=== PATIENT | female | born 1965 | race Caucasian/White ===

== ENCOUNTER 2018-02-25 02:48 | Emergency (ER) | payer BC, SELFPAY ==
[2018-02-25] MEDS ORDERED: FAMOTIDINE 20 MG/2 ML VIAL IV ONE (03:05)
[2018-02-25] MEDS ORDERED: NA CHLORIDE 0.9% 1,000 ML ONE (03:05)
[2018-02-25] MEDS ORDERED: DIPHENOX/ATROP SULF 1 TAB PO ONE (03:08)
[2018-02-25 03:27] LABS: Absolute Monocytes 0.5 K/uL (0.1-1.3); Absolute Neutrophil 8.4 K/uL (1.8-8.0); Basophils % 0.1 % (0-1.3); Eosinophils % 0.1 % (0-4.4); Hematocrit 46.6 % (36.0-45.0); Lymphocytes % 10.3 % (15.3-44.8); MCH 30.3 pg (27.0-35.0); MCV 90.3 fL (80-100); MPV 8.2 fL (7.6-11.3); Monocytes % 5.4 % (3.3-12.3); RBC Red Blood Cell Count 5.16 M/uL (3.86-4.86)
[2018-02-25] MEDS ORDERED: CIPROFLOXACIN HCL 500 MG TAB ONE (03:42)
[2018-02-25] MEDS ORDERED: metroNIDAZOLE 500 MG TABLET ONE (03:42)
[2018-02-25 04:05] LABS: Albumin 4.2 g/dL (3.4-5.0); Bilirubin Direct 0.1 mg/dL (0-0.2); Bilirubin Total 0.6 mg/dL (0.2-1.0); Potassium 4.5 mmol/L (3.5-5.1); Protein, Total 7.5 g/dL (6.4-8.2)
--- NOTE | 2018-02-25 04:41 | ER ---
Nurse's Notes [facility] Name: Karina Cortes Age: 52 yrs Sex: Female : 1965 Arrival Date: 02/25/2018 Time: 02:50 Bed 6 Private MD: Diagnosis: Gastroenteritis;Nausea with vomiting, unspecified;Diarrhea, unspecified Presentation: 02/25 02:51 Presenting complaint: EMS states: Patient complaint of diarrhea that began at 2030 lp1 tonight, states vomiting x2; Hx of "spastic colon"; Denies fever. Transition of care: patient was not received from another setting of care. Onset of symptoms was February 24, 2018 at 20:30. Risk Assessment: Do you want to hurt yourself or someone else? Patient reports no desire to harm self or others. Initial Sepsis Screen: Does the patient meet any 2 criteria? No. Patient's initial sepsis screen is negative. Does the patient have a suspected source of infection? No. Patient's initial sepsis screen is negative. Care prior to arrival: None. 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 - Social history:: Smoking status: Patient uses tobacco products, smokes one-half pack cigarettes per day. - Ebola Screening: : No symptoms or risks identified at this time. Screenin:57 Abuse screen: Denies threats or abuse. Denies injuries from another. Nutritional lp1 screening: No deficits noted. Tuberculosis screening: No symptoms or risk factors identified. Fall Risk None identified. Assessment: 02:55 General: Appears uncomfortable, unkempt, Behavior is appropriate for age. Pain: lp1 Complains of pain in abdomen Pain currently is 7 out of 10 on a pain scale. Quality of pain is described as sharp. Neuro: Level of Consciousness is awake, alert, obeys commands, Oriented to person, place, situation. Cardiovascular: Patient's skin is warm and dry. Respiratory: Respiratory effort is even, unlabored. GI: Abdomen is non-distended, Bowel sounds present X 4 quads. Abd is soft and non tender X 4 quads. Reports diarrhea, nausea, vomiting. : No signs and/or symptoms were reported regarding the genitourinary system. EENT: No signs and/or symptoms were reported regarding the EENT system. Derm: Skin is pink, warm \\T\\ dry. Musculoskeletal: Circulation, motion, and sensation intact. 03:51 Reassessment: Patient had BM in bed; states "I felt I had to go but it was too late"; lp1 BM noted to be liquid in form; Patient's linens changed, brief given. 04:13 Reassessment: Patient up to [facility] [place], liquid BM noted at this time. lp1 Vital Signs: 02:52 BP 132 / 61; Pulse 69; Resp 16; Temp 97.7(O); Pulse Ox 98% on R/A; Weight 61.23 kg; lp1 Height 5 ft. 4 in. (162.56 cm); Pain 7/10; 03:53 BP 109 / 59; Pulse 71; Resp 16; Pulse Ox 96% on R/A; lp1 04:48 BP 124 / 76; Pulse 66; Resp 18; Pulse Ox 100% on R/A; lp1 02:52 Body Mass Index 23.17 (61.23 kg, 162.56 cm) lp1 ED Course: 02:50 Patient arrived in ED. bb 02:51 Loan Rivas RN is Primary Nurse. lp1 02:51 Ayan Sanon MD is Attending Physician. kdr 02:52 Triage completed. lp1 02:52 Arm band placed on left wrist. lp1 02:58 Patient has correct armband on for positive identification. Bed in low position. Pulse lp1 ox on. NIBP on. 03:08 Initial lab(s) drawn, by me, sent to lab. Inserted saline lock: 22 gauge in right ks6 antecubital area, using aseptic technique. Blood collected. 04:48 No provider procedures requiring assistance completed. lp1 05:09 IV discontinued, No redness/swelling at site. Pressure dressing applied. lp1 Administered Medications: 03:10 Drug: NS 0.9% 1000 ml Route: IV; Rate: 1 bolus; Site: right antecubital; lp1 04:30 Follow up: IV Status: Completed infusion; IV Intake: 1000ml lp1 03:10 Drug: Pepcid 20 mg Route: IVP; Site: right antecubital; lp1 03:54 Follow up: Response: No adverse reaction lp1 03:10 Drug: LoMOTIL 2 tabs Route: PO; lp1 03:54 Follow up: Response: No adverse reaction lp1 03:51 Drug: Flagyl 500 mg Route: PO; lp1 04:47 Follow up: Response: No adverse reaction lp1 03:51 Drug: Cipro 500 mg Route: PO; lp1 04:47 Follow up: Response: No adverse reaction lp1 Intake: 04:30 IV: 1000ml; Total: 1000ml. lp1 Outcome: 04:41 Discharge ordered by MD. kdr 05:09 Discharged to home ambulatory, with family. lp1 05:09 Condition: good 05:09 Discharge instructions given to patient, family, Instructed on discharge instructions, follow up and referral plans. medication usage, Demonstrated understanding of instructions, follow-up care, medications, Prescriptions given X 4. 05:10 Patient left the ED. lp1 Signatures: Ayan Sanon MD MD kdr Ballard, Brenda, RN RN Loan Vidal RN RN lp1 Linus Rincon ks6
--- NOTE | 2018-02-25 04:41 | EDPHYS ---
Physician Documentation [facility] Name: Karina Cortes Age: 52 yrs Sex: Female : 1965 Arrival Date: 02/25/2018 Time: 02:50 Bed 6 Private MD: ED Physician Ayan Sanon HPI: 02/25 03:00 This 52 yrs old Female presents to ER via EMS with complaints of Abdominal kdr Pain, Diarrhea. 03:00 The patient presents with abdominal pain that is diffuse. Onset: The symptoms/episode kdr began/occurred suddenly, at 18:00. The patient presents to the emergency department with nausea, that is moderate, vomiting, that is intermittent, diarrhea, that is intermittent, abdominal pain, of the abdomen diffusely. Onset: The symptoms/episode began/occurred suddenly, at 18:00. 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 - Social history:: Smoking status: Patient uses tobacco products, smokes one-half pack cigarettes per day. - Ebola Screening: : No symptoms or risks identified at this time. ROS: 03:17 Constitutional: Negative for fever, chills, and weight loss, Eyes: Negative for injury, kdr pain, redness, and discharge, ENT: Negative for injury, pain, and discharge, Neck: Negative for injury, pain, and swelling, Cardiovascular: Negative for chest pain, palpitations, and edema, Respiratory: Negative for shortness of breath, cough, wheezing, and pleuritic chest pain, Back: Negative for injury and pain, : Negative for injury, bleeding, discharge, and swelling, MS/Extremity: Negative for injury and deformity, Skin: Negative for injury, rash, and discoloration, Neuro: Negative for headache, weakness, numbness, tingling, and seizure activity. Psych: Negative for depression, anxiety, suicide ideation, homicidal ideation, and hallucinations, Allergy/Immunology: Negative for hives, rash, and allergies, Endocrine: Negative for neck swelling, polydipsia, polyuria, polyphagia, and marked weight changes, Hematologic/Lymphatic: Negative for swollen nodes, abnormal bleeding, and unusual bruising. 03:17 Abdomen/GI: Positive for abdominal pain, nausea, vomiting, and diarrhea, abdominal cramps, Negative for black/tarry stool, rectal pain, rectal bleeding, bowel incontinence. Exam: 04:39 Constitutional: This is a well developed, well nourished patient who is awake, alert, kdr and in no acute distress. Head/Face: Normocephalic, atraumatic. Eyes: Pupils equal round and reactive to light, extra-ocular motions intact. Lids and lashes normal. Conjunctiva and sclera are non-icteric and not injected. Cornea within normal limits. Periorbital areas with no swelling, redness, or edema. Neck: Trachea midline, no thyromegaly or masses palpated, and no cervical lymphadenopathy. Supple, full range of motion without nuchal rigidity, or vertebral point tenderness. No Meningismus. Chest/axilla: Normal chest wall appearance and motion. Nontender with no deformity. No lesions are appreciated. Cardiovascular: Regular rate and rhythm with a normal S1 and S2. No gallops, murmurs, or rubs. Normal PMI, no JVD. No pulse deficits. Respiratory: Lungs have equal breath sounds bilaterally, clear to auscultation and percussion. No rales, rhonchi or wheezes noted. No increased work of breathing, no retractions or nasal flaring. Back: No spinal tenderness. No costovertebral tenderness. Full range of motion. Skin: Warm, dry with normal turgor. Normal color with no rashes, no lesions, and no evidence of cellulitis. MS/ Extremity: Pulses equal, no cyanosis. Neurovascular intact. Full, normal range of motion. Neuro: Awake and alert, GCS 15, oriented to person, place, time, and situation. Cranial nerves II-XII grossly intact. Motor strength 5/5 in all extremities. Sensory grossly intact. Cerebellar exam normal. Normal gait. Psych: Awake, alert, with orientation to person, place and time. Behavior, mood, and affect are within normal limits. 04:39 Abdomen/GI: Inspection: abdomen appears normal, Bowel sounds: active, all quadrants, Palpation: soft, mild abdominal tenderness, in all quadrants. Vital Signs: 02:52 BP 132 / 61; Pulse 69; Resp 16; Temp 97.7(O); Pulse Ox 98% on R/A; Weight 61.23 kg; lp1 Height 5 ft. 4 in. (162.56 cm); Pain 7/10; 03:53 BP 109 / 59; Pulse 71; Resp 16; Pulse Ox 96% on R/A; lp1 04:48 BP 124 / 76; Pulse 66; Resp 18; Pulse Ox 100% on R/A; lp1 02:52 Body Mass Index 23.17 (61.23 kg, 162.56 cm) lp1 MDM: 04:39 Differential diagnosis: Nonspecific abd pain, gastritis, pancreatitis, viral kdr gastroenteritis. Data reviewed: vital signs, nurses notes. Counseling: I had a detailed discussion with the patient and/or guardian regarding: the historical points, exam findings, and any diagnostic results supporting the discharge/admit diagnosis, lab results, the need for outpatient follow up. ED course: The patient improved with the interventions given. 04:41 Patient medically screened. [facility] 02/25 02:58 Order name: Basic Metabolic Panel; Complete Time: 04:07 [facility] 02/25 02:58 Order name: CBC with Diff; Complete Time: 03:54 [facility] 02/25 02:58 Order name: Creatinine for Radiology; Complete Time: 03:54 [facility] 02/25 02:58 Order name: Hepatic Function; Complete Time: 04:07 [facility] 02/25 02:58 Order name: Lipase; Complete Time: 04:07 [facility] 02/25 02:58 Order name: Urine Microscopic Only [facility] 02/25 02:58 Order name: IV Saline Lock; Complete Time: 03:09 [facility] 02/25 04:44 Order name: Urine Culture [facility] 02/25 04:44 Order name: Urine Dipstick--Ancillary (enter results) [facility] 02/25 02:58 Order name: Labs collected and sent; Complete Time: 03:09 [facility] 02/25 02:58 Order name: Urine Dipstick-Ancillary (obtain specimen); Complete Time: 04:47 kdr Administered Medications: 03:10 Drug: NS 0.9% 1000 ml Route: IV; Rate: 1 bolus; Site: right antecubital; lp1 04:30 Follow up: IV Status: Completed infusion; IV Intake: 1000ml lp1 03:10 Drug: Pepcid 20 mg Route: IVP; Site: right antecubital; lp1 03:54 Follow up: Response: No adverse reaction lp1 03:10 Drug: LoMOTIL 2 tabs Route: PO; lp1 03:54 Follow up: Response: No adverse reaction lp1 03:51 Drug: Flagyl 500 mg Route: PO; lp1 04:47 Follow up: Response: No adverse reaction lp1 03:51 Drug: Cipro 500 mg Route: PO; lp1 04:47 Follow up: Response: No adverse reaction lp1 Disposition: 02/25/18 04:41 Discharged to Home. Impression: Gastroenteritis, Nausea with vomiting, unspecified, Diarrhea, unspecified. - Condition is Stable. - Discharge Instructions: Food Choices to Help Relieve Diarrhea, Adult, Nausea and Vomiting, [id number], Diarrhea, [id number]. - Prescriptions for Flagyl 500 mg Oral Tablet - take 1 tablet by ORAL route every 6 hours for 7 days; 28 tablet. Zofran 4 mg Oral Tablet - take 1 tablet by ORAL route every 12 hours As needed; 6 tablet. Cipro 500 mg Oral Tablet - take 1 tablet by ORAL route every 12 hours for 7 days; 14 tablet. Lomotil 2.5- 0.025 mg Oral Tablet - take 2 tablet by ORAL route once daily As needed; 20 tablet. - Medication Reconciliation Form, Thank You Letter, Antibiotic Education form. - Follow up: Private Physician; When: 2 - 3 days; Reason: If symptoms return, Further diagnostic work-up, Recheck today's complaints, Continuance of care, Re-evaluation by your physician. - Problem is new. - Symptoms have improved. Signatures: Dispatcher [employer] EDDC Ayan Sanon MD MD [facility] Loan Rivas RN RN lp1 Corrections: (The following items were deleted from the chart) 05:10 04:41 02/25/2018 04:41 Discharged to Home. Impression: Gastroenteritis; Nausea with lp1 vomiting, unspecified; Diarrhea, unspecified. Condition is Stable. Forms are Medication Reconciliation Form, Thank You Letter, Antibiotic Education, Prescription Opioid Use. Follow up: Private Physician; When: 2 - 3 days; Reason: If symptoms return, Further diagnostic work-up, Recheck today's complaints, Continuance of care, Re-evaluation by your physician. Problem is new. Symptoms have improved. kdr
[2018-02-25 04:43] LABS: Urine Bacteria 20-50 /HPF (<20); Urine Culture Reflex Order REFLEXED; Urine RBC NONE SEEN /HPF (NONE SEEN)
[2018-02-25 05:35] LABS: Urine Blood NEGATIVE (NEG); Urine Glucose NEGATIVE (NEG); Urine Protein NEGATIVE (NEG); Urine Specific Gravity <1.005 (1.005-1.030); Urine pH 5.5 (5.0-7.0)
== END 2018-02-25 05:10 | disposition home or self-care (01) ==
LOC: ER 02:48
DX: K52.9 Noninfective gastroenteritis and colitis, unspecified (principal); F17.210 Nicotine dependence, cigarettes, uncomplicated; Z88.8 Allergy status to other drugs, medicaments and biological substances
CPT/HCPCS: 36415; 80048; 80076; 81003; 81015; 83690; 85025; 87086; 87088; 96361; 96374; 99284; J7030